=== PATIENT | female | born 1965 ===

== ENCOUNTER 2017-09-16 09:48 | Outpatient (CLI) | payer OTHER ==
[~2017-09-16 09:48] MED LIST: MOTRIN800 MG PO; NABUMETONE500 MG PO; PERCOCET 5/3251 TAB PO; SYNTHROID88 MCG
== END 2017-09-16 10:09 | disposition home or self-care (01) ==
LOC: LAB 09:48
DX: D50.8 Other iron deficiency anemias (principal); I10 Essential (primary) hypertension; R79.89 Other specified abnormal findings of blood chemistry; K76.9 Liver disease, unspecified; M19.90 Unspecified osteoarthritis, unspecified site; E03.8 Other specified hypothyroidism; E78.2 Mixed hyperlipidemia